=== PATIENT | female | born 1955 | race Caucasian/White ===

== ENCOUNTER 2016-04-16 09:11 | Emergency (ER) | payer OTHER ==
[2016-04-16 09:46] VITALS: BP 138/82; PULSE 66; RESP 18; TEMP 98.1; O2SAT 96
--- NOTE | 2016-04-16 10:27 | UCPHY ---
[id number] Time Seen by Provider: 04/16/16 10:13 HPI/ROS: CHIEF COMPLAINT: Sinus congestion HISTORY OF PRESENT ILLNESS: This is a 60-year-old female with a history of rheumatoid arthritis on Humira who presents with sinus congestion. She has been ill for the past week and half. This illness began with runny nose and sore throat. Recently she began to worsen and has now developed increasing drainage that is yellow in color, sinus pressure, mild cough, subjective fever, and fatigue. She has been using Zyrtec and Tylenol. She reports a mild cough, no shortness of breath. She has not had nausea, vomiting, or diarrhea. REVIEW OF SYSTEMS: A ten point review of systems was performed and is negative with the exception of the items mentioned in the HPI. No new joint symptoms. Source: Patient Exam Limitations: No limitations - Personal History Current Tetanus/Diphtheria Vaccine: Yes Tetanus Vaccine Date: < 10 YEARS - Medical/Surgical History Hx Asthma: No Hx Chronic Respiratory Disease: No Hx Diabetes: No Hx Cardiac Disease: Yes Hx Renal Disease: No Hx Cirrhosis: No Hx Alcoholism: No Hx HIV/AIDS: No Hx Splenectomy or Spleen Trauma: No Other PMH: RHEUMATOID ARTHRITIS, HYPERCHOLESTEMIA, GASTRIC BYPASS - Family History Significant Family History: No pertinent family hx - Social History Smoking Status: Never smoked Additional Social History: She is . She lives in [place]. She does not use tobacco products. Family history is noncontributory. - Physical Exam Exam: General Appearance: Alert. Vital signs reviewed. Blood pressure 138/82. Eyes: Pupils equal and round, no conjunctival injection, no discharge. Anicteric. ENT, Mouth: Mucous membranes are moist, no oropharyngeal erythema or edema. Left maxillary sinus tenderness. Sinus drainage in the posterior oropharynx. Neck: No lymphadenopathy, supple. Respiratory: Lungs are clear to auscultation; no wheezes, rales, or rhonchi. Cardiovascular: Regular rate and rhythm; no murmur, rub, or gallop. Gastrointestinal: Abdomen is soft and nontender, no masses or organomegaly, bowel sounds normal. Skin: Warm and dry, no rashes on exposed skin, normal color. Back: Nontender to palpation over the thoracolumbar spine. No CVAT. Extremities: No lower extremity edema, no calf tenderness or swelling. Neurological: Alert and oriented. Moving all four extremities easily and equally. Psychiatric: Normal affect. Constitutional: Initial Vital Signs Temperature (C) 36.7 C 04/16/16 09:15 Heart Rate 66 04/16/16 09:15 Respiratory Rate 18 04/16/16 09:15 Blood Pressure 138/82 H 04/16/16 09:15 O2 Sat (%) 96 04/16/16 09:15 O2 Delivery Mode Room Air Allergies/Adverse Reactions: alprazolam [From Xanax] Allergy (Verified 04/16/16 09:48) amoxicillin trihydrate [From Augmentin] Allergy (Verified 04/16/16 09:48) atorvastatin calcium [From Lipitor] Allergy (Verified 04/16/16 09:48) baclofen Allergy (Verified 04/16/16 09:48) cefuroxime Allergy (Verified 04/16/16 09:48) celecoxib [From Celebrex] Allergy (Verified 04/16/16 09:50) escitalopram oxalate [From Lexapro] Allergy (Verified 04/16/16 09:48) fluoxetine HCl [From Prozac] Allergy (Verified 04/16/16 09:48) medroxyprogesterone acetate [From Provera] Allergy (Verified 04/16/16 09:48) melatonin Allergy (Verified 04/16/16 09:48) nortriptyline HCl [From Pamelor] Allergy (Verified 04/16/16 09:48) potassium clavulanate [From Augmentin] Allergy (Verified 04/16/16 09:48) rosuvastatin calcium [From Crestor] Allergy (Verified 04/16/16 09:48) sertraline HCl [From Zoloft] Allergy (Verified 04/16/16 09:48) tramadol HCl [From Ultram] Allergy (Verified 04/16/16 09:48) venlafaxine HCl [From Effexor] Allergy (Verified 04/16/16 09:48) PAXIL Allergy (Uncoded 04/16/16 09:48) Home Medications: Medication Instructions Recorded ASPIRIN 04/16/16 Doxycycline Hyclate [Doxycycline] 100 mg PO BID #10 cap 04/16/16 Humira 04/16/16 Pepcid 04/16/16 Tums Ultra 04/16/16 VITAMIN D 04/16/16 Zetia 04/16/16 Medical Decision Making ED Course/Re-evaluation: 60-year-old female with rheumatoid arthritis on Humira. She has been ill for over the last week and have an is now developed symptoms of sinus infection. Given that she is immune suppressed I am recommending antibiotics in this setting. She is started on doxycycline (she has an Augmentin allergy per her report). Danger signs reviewed. I do not think that imaging or blood work will be helpful in this setting. She is not currently febrile. She is not short of breath and her lung exam is normal. I do not suspect pneumonia or bronchitis. I do not think that this is influenza. She has sinus tenderness in the sinus headache--I do not suspect a more sinister cause for headache such as meningitis. She receives her medical care in [place], where she lives. She is noted to have high blood pressure while here. She will have this followed up by her primary care physician. Departure - Departure Disposition: Home, Routine, Self-Care Clinical Impression: Sinusitis Condition: Good Instructions: Sinusitis (ED) Referrals: OUT OF STATE,. [Primary Care Provider] - As per Instructions Prescriptions: Doxycycline Hyclate [Doxycycline] 100 mg PO BID #10 cap - PQRS PQRS Measurement: 134: Depression screening and followup, PRIME MD-PHQ2 (12 years and older) Over the last 2 weeks, how often have you been bothered by any of the following problems? 1. Feeling down, depressed, or hopeless? 2. Little interest or pleasure in doing things? [Patient answered no to both 1 and 2] [Patient answered yes to at least 1, referred to PCP for further evaluation.] [Not done because] [altered mental status] [patient refused] [critically ill]. 130: Documentation of medications. [Reviewed all patient medications, doses, route and frequency.] [Unable to obtain meds due to] [critical illness] [altered mental status] [ patient did not know]. 226: Do you smoke? [Yes, counseled to stop.] [No.] 47: 65 and older: Advanced care planning. Patient designates surrogate decision maker as [parent] [spouse] [ ]. [Patient refused.] [Patient has advanced directive.] 51: 18 years old and older with diagnosis of COPD, spirometry performance. [Spirometry not performed; equipment not available.] [Patient has no history of COPD] 52: 18 years old and older with COPD and symptoms of COPD or FEV1<60% predicted prescribed a B Agonist. [Spirometry not performed; equipment not available.]
== END 2016-04-16 10:46 | disposition home or self-care (01) ==
LOC: CED 09:11
DX: J01.90 Acute sinusitis, unspecified (principal); M06.9 Rheumatoid arthritis, unspecified
CPT/HCPCS: G0463-PO